=== PATIENT | male | born 1990 | race Two or more races ===

== ENCOUNTER 2024-08-07 13:59 | Emergency (ER) | payer OTHER ==
[~2024-08-07] VITALS: Ht 177.8 cm; Wt 108.9 kg
[2024-08-07] MEDS ORDERED: ORPHENADRINE CITRATE 30 MG/ML AMPUL IM STA (15:51)
[2024-08-07] MEDS ORDERED: KETOROLAC TROMETHAMINE 60 MG VIAL IM ONE ×2 (16:00→16:07)
[2024-08-07] MEDS ORDERED: ORPHENADRINE CITRATE 30 MG/ML AMPUL ONE (16:07)
== END 2024-08-07 16:29 | disposition home or self-care (01) ==
LOC: ER 14:00
DX: M54.50 Low back pain, unspecified (principal)
CPT/HCPCS: 96372; 99282; J1885; J2360